=== PATIENT | male | born 1990 | race Caucasian/White ===

== ENCOUNTER 2020-09-07 21:00 | Observation (INO) | payer OTHER ==
[~2020-09-07] VITALS: Ht 177.8 cm; Wt 99.0 kg
[2020-09-07] MEDS ORDERED: VENTOLIN HFA18 GM INH (21:34)
--- NOTE | 2020-09-08 | NUR ---
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 Pt transported to CCU via stretcher on cardiac technologist. upon arrival, pt is able to self transfer from stretcher to bed. no shortness of breath noted with activity at this time.
--- NOTE | 2020-09-08 00:32 | NUR ---
Initial assessment and medication administration completed at this time. PT hear rate is 110 at rest. spo = 96 percent on room air. lungs sound clear in upper airways. fine crackles heard on auscultation in both lower lungs. pt denies nausea or shortness of breath but is diaphoretic. oral temperature of 101.1 F. Given prn medications for fever and cough (see emar). iv fluids infusing. plan of care for evening established. pt denies further needs at this time.
--- NOTE | 2020-09-08 01:35 | NUR ---
IN ROOM FOR MEDICATION ADMINISTRATION. PT TEMPERATURE NOW AT 98.1 DENIES NEEDS AT THIS TIME.
--- NOTE | 2020-09-08 02:30 | NUR ---
pt sleeping. rr =12 spo2=92% on RA. heart rate in the 80's. call light within reach. no assessed needs at this time.
--- NOTE | 2020-09-08 03:30 | NUR ---
PT STANDING INDEPENDENTLY IN ROOM TO VOID. STEADY ON FEET. BACK IN BED. NO NEEDS AT THIS TIME
--- NOTE | 2020-09-08 04:45 | NUR ---
ASSESSMENT COMPLETED AT THIS TIME. PT ALERT AND ORIENTED. SPO2 =94 PERCENT ON ROOM AIR. HEART RATE IN THE 80'S. PT IS LESS DIAPHORETIC THAN EARLIER IN THE SHIFT. DENIES PAIN OR SHORTNESS OF BREATH. CALL LIGHT WITHIN REACH. NO FURTHER NEEDS AT THIS TIME.
--- NOTE | 2020-09-08 05:16 | NUR ---
BLOOD DRAWN AND SENT TO LAB. WELL TOLERATED BY PATIENT
--- NOTE | 2020-09-08 08:00 | NUR ---
REPORT RECEIVED. PT SITTING IN BED WATCHING TV. RESPIRAITONS EQUAL AND NONLAOBRED. ON RA. CALL LIGHT IN REACH.
--- NOTE | 2020-09-08 09:06 | NUR ---
Medications reconciled
--- NOTE | 2020-09-08 09:30 | NUR ---
THIS RN IN WITH PATIENT. NEW LEADS PLACED ON PATIENT. VITALS DONE. BREAKFAST AT THE BEDSIDE. PATIENT LIGHT ON AND PATIENT EDUCATED HE COULD GET UP AND MOVE AROUND IN THE ROOM HE CAN TOLERATE. NO OTHER NEEDS AT THIS TIME. WILL CONTINUE TO CLOSELY MONITOR.
--- NOTE | 2020-09-08 10:00 | NUR ---
IN FOR ASSESSMENT. PT SALINE LOCKED PER ORDER. LUNGS WITH CRACKLES IN BASES. DENEIS SOB. ON RA. HEART SOUNDS REGULAR ALTHOUGH HR IS TACHY, ESPECIALLY WITH ACTIVITY.
[2020-09-08] MEDS ORDERED: ZESTRIL10 MG PO (12:23)
[2020-09-08] MEDS ORDERED: TOPROL XL100 MG PO (12:23)
--- NOTE | 2020-09-08 14:00 | NUR ---
PT COMPLETED WITH LUNCH. ASSISTED TO PRONE POSITION. PT WITH SOME TACHYPNEIC AND TACHYCARDIC WHILE REPOSITIONING. SOME COUGHING ONCE IN PRONE POSITION. PT ABLE TO CALM DOWN AND HR AND RR RETURNED BACK TO NORMAL. SPO2 AT 95% ON RA. PT WITH PILLOW UNDER CALVES, HIPS AND HEAD. CALL LIGHT IN REACH.
--- NOTE | 2020-09-08 15:50 | NUR ---
ROUNDED ON PT. PT STILL PRONING. VITALS TAKEN AND STABLE. URINAL EMPTIED FOR 700ML. PT DENIES PAIN OR SOB. ON RA WITH SPO2 AT 98%. HR STILL TACHY WITH ACTIVITY UP TO 120.
--- NOTE | 2020-09-08 18:05 | NUR ---
ROUNDED ON PT AND ADMINSTERED COUGH MEDICINE. PT SITTING UP IN BED FOR DINNER. DENIES PAIN. VITALS TAKEN AND STABLE .URINAL EMTIED FOR 700ML. CALL LIGHT IN REACH
--- NOTE | 2020-09-08 19:47 | NUR ---
ROUNDED ON pt. RESTING IN BED. NO REQUESTS AT THIS TIME. CALL LIGHT WITHIN REACH. DISCUSSED PLAN OF CARE FOR THE EVENING.
--- NOTE | 2020-09-08 20:15 | NUR ---
IN TO GIVE MEDICATIONS AND ASSESS. pt REPORTS "I'M DOING FINE." HAS A COUGH AND WILL ASK FOR COUGH MEDS WHEN READY. MEDICATIONS GIVEN (SEE MAR). pt INDEPENDENT IN THE ROOM. PROVIDED FRESH WATER. TIDIED ROOM. ASSESSMENT DONE. DISCUSSED PLAN OF CARE. NO FURTHER REQUESTS AT THIS TIME. CALL LIGHT WITHIN REACH.
--- NOTE | 2020-09-08 21:08 | NUR ---
KEYSHAWNIVIR COMPLETE. SL. NO REQUESTS AT THIS TIME. WOULD LIKE MELATONIN AT 2130. CALL LIGHT WITHIN REACH.
--- NOTE | 2020-09-08 21:54 | NUR ---
IN TO GIVE MEDICATION. pt REQUESTED PRN COUGH MED, GIVEN (SEE MAR). NO REQUESTS AT THIS TIME. CALL LIGHT WITHIN REACH.
--- NOTE | 2020-09-08 22:56 | NUR ---
ROUNDED ON pt. RESTING IN BED WITH EYES CLOSED, LIGHTS OFF. ROOM AIR 94%. HR 79. CALL LIGHT WITHIN REACH.
--- NOTE | 2020-09-09 00:25 | NUR ---
pt MOVED TO MED/SURG ROOM 116. pt WOKE TO VOICE. DENIED NEEDS AT THIS TIME. POSSESSIONS WITHIN REACH. CALL LIGHT WITHIN REACH.
--- NOTE | 2020-09-09 02:30 | NUR ---
ROUNDED ON pt. RESTING IN BED WITH EYES CLOSED, CALL LIGHT WITHIN REACH.
--- NOTE | 2020-09-09 04:30 | NUR ---
ROUNDED ON pt. RESTING IN BED WITH EYES CLOSED, RESPIRATIONS REGULAR. CALL LIGHT WITHIN REACH.
--- NOTE | 2020-09-09 06:25 | NUR ---
IN TO DRAW LABS AND DO ASSESSMENT. pt WOKE TO VOICE. REPORTED SLEEPING "OKAY". IV NOT PATENT. PULL PER POLICY. NEW IV STARTED BY CAMERON RUIZ. ASSESSMENT DONE. DENIES PAIN. REPORTED COUGH IS "OKAY" AT THIS TIME, REFUSED MEDICATIONS. PROVIDED FRESH WATER. CALL LIGHT WITHIN REACH.
--- NOTE | 2020-09-09 06:55 | NUR ---
NEW IV STARTED RIGHT AC. pt TOLERATED WELL. LABS DRAWN, FLUSHED WITH 20 MLS NS AFTER 3ML WASTE. CALL LIGHT IN REACH. LIGHTS OFF IN ROOM.
--- NOTE | 2020-09-09 07:33 | NUR ---
REPORT RECEIVED. PT ON TELE 3. 93% ON RA. HR 91.
--- NOTE | 2020-09-09 09:55 | NUR ---
ASSESSMENT COMPLETED. COUGH MEDICATION GIVEN. LUNGS CLEAR ON UPPER LOBES WITH SOME CRACKLES BILATERALLY ON LOWER LOBES. PT DENIES SOB. PT TACHY WITH ACTIVITY WITH HR REACHING 120. COUGH IS DRY. NO SPUTUM COLLECTED. PT ATE 100% OF BREAKFAST. DRINKING WELL. DENIES NEEDS. CALL LIGHT IN REACH
--- NOTE | 2020-09-09 10:08 | NUR ---
PT OUT OF SHOWER. TELE PLACED WITH NEW STICKERS. CALL LGITH IN REACH
--- NOTE | 2020-09-09 11:47 | NUR ---
medications reconciled using pharmacy records and patient information
--- NOTE | 2020-09-09 12:38 | NUR ---
LUNCH PROVIDED THROUGH DOOR FOR PT. PT INDEPENDENT IN TO ROOM. WATER PROVIDED.
[2020-09-09] MEDS ORDERED: TOPROL XL100 MG PO (12:42)
[2020-09-09] MEDS ORDERED: DECADRON6 MG PO (12:44)
--- NOTE | 2020-09-09 13:13 | NUR ---
UNABLE TO VISIT WITH PT IN RM DUE TO PREAUTIONS. CONNECTED VIA PHONE. TO STATED HE WAS FEELING BETTER, ON RM O2. PT REQUESTED PRAYER, WILL FOLLOW
--- NOTE | 2020-09-09 14:00 | NUR ---
DISCHARGE INSTRUCTION PROVIDED. RT IN FOR BREATHING TREATMENT. PT WITH NO QUESTIONS. IV DC'S AND WNL. VITALS TAKEN AND STABLE.
== END 2020-09-09 14:13 | disposition home or self-care (01) ==
LOC: ED 21:00 → CCU 21:02 → ED 21:02 → CCU 09-08 00:10 → ED 09-08 00:10 → CCU 09-08 15:51 → MS 09-08 15:51 → ED 09-08 17:00 → MS 09-09 00:19
PROVIDERS: ADMIT Student in an Organized Health Care Education/Training Program; ATTEND Student in an Organized Health Care Education/Training Program
DX: U07.1 COVID-19 (principal); J12.89 Other viral pneumonia; J96.01 Acute respiratory failure with hypoxia; R19.7 Diarrhea, unspecified; R11.0 Nausea; I10 Essential (primary) hypertension; Z88.5 Allergy status to narcotic agent
CPT/HCPCS: 71045; 80053; 85025; 94640; 94667; 94668; 94760; 96372; 96374; 96375; 96376; 99285-25; G0378; J1100; J1650; J7030; J7050; J7121